=== PATIENT | male | born 1985 | race Two or more races ===

== ENCOUNTER 2020-10-05 13:06 | Emergency (ER) | payer OTHER | END 2020-10-05 13:12 | disposition home or self-care (01) | LOC: JVIRT 13:06 | DX: Z03.818 Encounter for observation for suspected exposure to other biological agents ruled out (principal) | CPT/HCPCS: C9803; Q3014-GT; U0003 ==

== ENCOUNTER 2020-10-27 11:09 | Emergency (ER) | payer OTHER | END 2020-10-27 12:38 | disposition home or self-care (01) | LOC: JVIRT 11:09 | DX: Z03.818 Encounter for observation for suspected exposure to other biological agents ruled out (principal) | CPT/HCPCS: C9803; G2012-GT; U0003 ==